=== PATIENT | male | born 1960 | race Caucasian/White ===

== ENCOUNTER 2021-08-04 17:01 | Inpatient (IN) | payer BC ==
[~2021-08-04] VITALS: Ht 182.9 cm; Wt 90.0 kg
[2021-08-04 19:02] LABS: BASOPHILS % (AUTO) 0.1 % (0-1); EOSINOPHILS % (AUTO) 0 % (0-6); HEMATOCRIT 40.4 % (42.0-52.0); LYMPHOCYTES # (AUTO) 0.4 X10'3 (1.1-4.8); LYMPHOCYTES % (AUTO) 6.4 % (21-51); MEAN CORPUSCULAR HEMOGLOBIN 29.3 PG (27.0-31.0); MEAN CORPUSCULAR HGB CONC 34.6 g/dL (33.0-36.5); MEAN CORPUSCULAR VOLUME 84.7 FL (78-98); MEAN PLATELET VOLUME 7.7 FL (7.4-10.4); MONOCYTES # (AUTO) 0.2 X10'3 (0-0.9); MONOCYTES % (AUTO) 4.2 % (2-12); NEUTROPHILS # (AUTO) 5.2 X10'3 (1.8-7.7); NEUTROPHILS % (AUTO) 89.3 % (42-75); PLATELET COUNT 137 X10'3 (140-440); RED BLOOD COUNT 4.77 X10'6 (4.70-6.10); RED CELL DISTRIBUTION WIDTH 12.8 % (11.5-14.5); WHITE BLOOD COUNT 5.9 X10'3 (4.5-11.0)
[2021-08-04 19:16] LABS: ALANINE AMINOTRANSFERASE 40 U/L (12-78); ALBUMIN/GLOBULIN RATIO 0.8 (1.1-1.5); ALKALINE PHOSPHATASE 52 IU/L (46-116); ANION GAP 13 (8-16); ASPARTATE AMINO TRANSFERASE 43 U/L (10-37); BILIRUBIN,TOTAL 0.5 MG/DL (0.1-1.0); BLOOD UREA NITROGEN 22 MG/DL (7-18); BUN/CREATININE RATIO 19.5 (5.4-32.0); CALCIUM 8.2 MG/DL (8.5-10.1); CHLORIDE 94 MMOL/L (99-107); CREATININE 1.13 MG/DL (0.60-1.10); GLUCOSE 134 MG/DL (70-104); POTASSIUM 4.3 MMOL/L (3.5-5.1); SODIUM 129 MMOL/L (135-145); TOTAL CARBON DIOXIDE 22.1 MMOL/L (24-32); TOTAL PROTEIN 6.9 G/DL (6.4-8.2); eGFR 67 ML/MIN
[2021-08-04 19:25] LABS: D-DIMER 1.64 MG/L FEU (0-0.50)
[2021-08-04 19:33] LABS: LACTATE DEHYDROGENASE 321 U/L (85-227)
[2021-08-04] MEDS ORDERED: morphine 2 MG/ML inj. syringe IV PRN ×2 (20:05)
[2021-08-04] MEDS ORDERED: ondansetron/PF 4mg/2ml inj IV PRN (20:05)
[2021-08-04] MEDS ORDERED: mag hydrox/Alum hydrox/simeth 30ml oral suspension PO PRN (20:05)
[2021-08-04] MEDS ORDERED: HYDROcodone/acetaminophen 10/325mg tab PO PRN (20:05)
[2021-08-04] MEDS ORDERED: HYDROcodone/acetaminophen 5mg/325mg tablet PO PRN (20:05)
[2021-08-04] MEDS ORDERED: magnesium hydroxide 30ml (MOM) UD suspension PO PRN (20:05)
[2021-08-04] MEDS ORDERED: acetaminophen 325mg tablet PO PRN ×2 (20:05)
[2021-08-04 20:07] LABS: C-REACTIVE PROTEIN 63.03 MG/DL (0.0-0.5)
[2021-08-04] MEDS ORDERED: REMDESIVIR INJ 200 MG in normal saline 100ml IV soln 100 ML IV ONE (21:00)
[2021-08-04] MEDS ORDERED: NO HOME MEDS (21:06)
[2021-08-04] MEDS: CefTRIAXone/D5W-Rocephin 1gm 50 ML IV SCH (21:07)
[2021-08-04 21:23] LABS: FERRITIN 1680 NG/ML (26-388)
--- NOTE | 2021-08-04 21:43 | NUR ---
Patient in room ED 13. I have received report from Edis ZHENG and had the opportunity to ask questions and assume patient care.
[2021-08-04 22:45] VITALS: BP 125/74
--- NOTE | 2021-08-04 23:54 | NUR ---
Pt has scab to Right Ear states this happened today from a fall at home. Pt stated he has no other pain associated with the fall however, he did land on his bottom.
--- NOTE | 2021-08-04 23:56 | NUR ---
at beside with pt. is aware of the pts sodium of 129 no new orders at this time.
[2021-08-05] MEDS: guaiFENesin/DM 10ml UD oral syrup PO PRN ×2 (00:07→22:03)
[2021-08-05] MEDS: dexamethasone inj 6 MG in dextrose 5%-water 50ml 50 ML IV SCH ×3 (00:08→19:03)
[2021-08-05 02:00] VITALS: BP 106/59
[2021-08-05 05:39] LABS: BASOPHILS # (AUTO) 0.1 X10'3 (0-0.2); EOSINOPHILS % (AUTO) 0.6 % (0-6); HEMATOCRIT 41.2 % (42.0-52.0); HEMOGLOBIN 14.2 g/dl (14.0-17.9); LYMPHOCYTES # (AUTO) 0.3 X10'3 (1.1-4.8); LYMPHOCYTES % (AUTO) 3.9 % (21-51); MEAN CORPUSCULAR HEMOGLOBIN 29.2 PG (27.0-31.0); MEAN CORPUSCULAR HGB CONC 34.4 g/dL (33.0-36.5); MEAN CORPUSCULAR VOLUME 85.1 FL (78-98); MONOCYTES # (AUTO) 0.2 X10'3 (0-0.9); MONOCYTES % (AUTO) 2.4 % (2-12); NEUTROPHILS # (AUTO) 6.4 X10'3 (1.8-7.7); NEUTROPHILS % (AUTO) 92.1 % (42-75); PLATELET COUNT 133 X10'3 (140-440); RED BLOOD COUNT 4.84 X10'6 (4.70-6.10); RED CELL DISTRIBUTION WIDTH 13.2 % (11.5-14.5); WHITE BLOOD COUNT 6.9 X10'3 (4.5-11.0)
[2021-08-05 05:50] LABS: D-DIMER 0.79 MG/L FEU (0-0.50)
[2021-08-05 05:55] LABS: ALBUMIN 2.7 G/DL (3.4-5.0); ANION GAP 12 (8-16); BLOOD UREA NITROGEN 22 MG/DL (7-18); C-REACTIVE PROTEIN 8.91 MG/DL (0.0-0.5); CALCIUM 8.1 MG/DL (8.5-10.1); CHLORIDE 99 MMOL/L (99-107); CREATININE 1.05 MG/DL (0.60-1.10); GLUCOSE 131 MG/DL (70-104); POTASSIUM 4.2 MMOL/L (3.5-5.1); SODIUM 132 MMOL/L (135-145); TOTAL CARBON DIOXIDE 21.5 MMOL/L (24-32); eGFR 73 ML/MIN
--- NOTE | 2021-08-05 06:08 | NUR ---
Patient in room ORTHO 4022. I have received report from Veronica ZHENG and had the opportunity to ask questions and assume patient care.
[2021-08-05 06:19] VITALS: BP 117/72
--- NOTE | 2021-08-05 06:23 | NUR ---
Problems reprioritized. Patient report given, questions answered & plan of care reviewed with Leisa ZHENG.
[2021-08-05] MEDS: CefTRIAXone/D5W-Rocephin 1gm 50 ML IV SCH (07:07)
[2021-08-05] MEDS: docusate sod 100mg capsule PO SCH ×2 (07:07→19:04)
[2021-08-05] MEDS: enoxaparin 40mg/0.4ml syringe SUBCUT SCH (07:07)
--- NOTE | 2021-08-05 07:46 | NUR ---
Provided patient with IS and flutter and instructed on importance of position change. Currently lying on right side, IV steroids infusing.
[2021-08-05 10:08] VITALS: BP 108/65
--- NOTE | 2021-08-05 10:10 | NUR ---
Cleansed wound to right ear with saline. WOC orders put in for their assessment.
--- NOTE | 2021-08-05 15:57 | NUR ---
PAGER ID: [phone] MESSAGE: [id number], Adrián, patient has had diarrhea for the past week and has had 2 episodes on my shift. COVID positive. Can I get immodium? [id number]
[2021-08-05 17:32] VITALS: BP 131/92
--- NOTE | 2021-08-05 18:18 | NUR ---
Problems reprioritized. Patient report given, questions answered & plan of care reviewed with Dinorah ZHENG.
--- NOTE | 2021-08-05 18:19 | NUR ---
Patient in room ORTHO 4022. I have received report from Leisa ZHENG and had the opportunity to ask questions and assume patient care.
[2021-08-05] MEDS: lactobacillus rhamnosus 10,000 MMU CELLS/CAPSULE PO SCH (19:03)
[2021-08-05] MEDS ORDERED: loperamide 2mg capsule PO PRN (20:00)
[2021-08-05] MEDS: REMDESIVIR INJ 100 MG in normal saline 100ml IV soln 100 ML IV SCH (20:19)
[2021-08-05 22:00] VITALS: BP 105/73
[2021-08-06 02:00] VITALS: BP 114/80
[2021-08-06 06:00] VITALS: BP 117/70
[2021-08-06 06:23] LABS: BASOPHILS % (AUTO) 0 % (0-1); EOSINOPHILS % (AUTO) 0 % (0-6); HEMATOCRIT 41.3 % (42.0-52.0); HEMOGLOBIN 13.9 g/dl (14.0-17.9); LYMPHOCYTES # (AUTO) 0.2 X10'3 (1.1-4.8); MEAN CORPUSCULAR HEMOGLOBIN 29.1 PG (27.0-31.0); MEAN CORPUSCULAR HGB CONC 33.8 g/dL (33.0-36.5); MEAN CORPUSCULAR VOLUME 86.2 FL (78-98); MEAN PLATELET VOLUME 8.1 FL (7.4-10.4); MONOCYTES # (AUTO) 0.2 X10'3 (0-0.9); NEUTROPHILS # (AUTO) 6.4 X10'3 (1.8-7.7); PLATELET COUNT 167 X10'3 (140-440); RED BLOOD COUNT 4.79 X10'6 (4.70-6.10); RED CELL DISTRIBUTION WIDTH 13.5 % (11.5-14.5); WHITE BLOOD COUNT 6.8 X10'3 (4.5-11.0)
--- NOTE | 2021-08-06 06:25 | NUR ---
Patient in room ORTHO 4022. I have received report from Dinorah ZHENG and had the opportunity to ask questions and assume patient care.
[2021-08-06 06:37] LABS: D-DIMER 0.55 MG/L FEU (0-0.50)
[2021-08-06 06:49] LABS: ALBUMIN 2.5 G/DL (3.4-5.0); ANION GAP 10 (8-16); BLOOD UREA NITROGEN 24 MG/DL (7-18); BUN/CREATININE RATIO 27.9 (5.4-32.0); C-REACTIVE PROTEIN 7.79 MG/DL (0.0-0.5); CALCIUM 8.3 MG/DL (8.5-10.1); CHLORIDE 103 MMOL/L (99-107); CREATININE 0.86 MG/DL (0.60-1.10); GLUCOSE 139 MG/DL (70-104); POTASSIUM 4.4 MMOL/L (3.5-5.1); SODIUM 137 MMOL/L (135-145); TOTAL CARBON DIOXIDE 24.3 MMOL/L (24-32); eGFR > 90 ML/MIN
[2021-08-06] MEDS: dexamethasone inj 6 MG in dextrose 5%-water 50ml 50 ML IV SCH ×2 (07:02→19:09)
[2021-08-06] MEDS: enoxaparin 40mg/0.4ml syringe SUBCUT SCH (07:02)
[2021-08-06] MEDS: lactobacillus rhamnosus 10,000 MMU CELLS/CAPSULE PO SCH ×2 (07:02→19:08)
[2021-08-06] MEDS: docusate sod 100mg capsule PO SCH ×2 (07:04→19:09)
[2021-08-06] MEDS: CefTRIAXone/D5W-Rocephin 1gm 50 ML IV SCH (07:48)
[2021-08-06 09:42] VITALS: BP 112/73
[2021-08-06] MEDS ORDERED: iohexol 350MG/ML 100ml bottle IV ONE (11:06)
[2021-08-06 14:21] VITALS: BP 108/74
[2021-08-06 18:00] VITALS: BP 111/63
--- NOTE | 2021-08-06 18:12 | NUR ---
Patient in room ORTHO 4022. I have received report from Leny ZHENG and had the opportunity to ask questions and assume patient care.
[2021-08-06] MEDS: REMDESIVIR INJ 100 MG in normal saline 100ml IV soln 100 ML IV SCH (20:21)
[2021-08-06 22:00] VITALS: BP 114/79
[2021-08-06] MEDS: guaiFENesin/DM 10ml UD oral syrup PO PRN (23:59)
[2021-08-07 02:00] VITALS: BP 119/83
--- NOTE | 2021-08-07 04:18 | NUR ---
Patient states he is to uncomfortable to lay on his sides and refusing to lay prone.
--- NOTE | 2021-08-07 06:11 | NUR ---
Problems reprioritized. Patient report given, questions answered & plan of care reviewed with Leisa ZHENG.
--- NOTE | 2021-08-07 06:13 | NUR ---
Patient in room ORTHO 4022. I have received report from Dinorah ZHENG and had the opportunity to ask questions and assume patient care.
[2021-08-07 06:30] VITALS: BP 131/83
[2021-08-07 06:41] LABS: BASOPHILS % (AUTO) 0.1 % (0-1); EOSINOPHILS % (AUTO) 0 % (0-6); HEMATOCRIT 39.5 % (42.0-52.0); HEMOGLOBIN 13.7 g/dl (14.0-17.9); LYMPHOCYTES # (AUTO) 0.1 X10'3 (1.1-4.8); LYMPHOCYTES % (AUTO) 1.2 % (21-51); MEAN CORPUSCULAR HGB CONC 34.6 g/dL (33.0-36.5); MEAN CORPUSCULAR VOLUME 86.6 FL (78-98); MONOCYTES # (AUTO) 0.4 X10'3 (0-0.9); MONOCYTES % (AUTO) 4.1 % (2-12); NEUTROPHILS # (AUTO) 8.7 X10'3 (1.8-7.7); NEUTROPHILS % (AUTO) 94.6 % (42-75); PLATELET COUNT 212 X10'3 (140-440); RED BLOOD COUNT 4.56 X10'6 (4.70-6.10); RED CELL DISTRIBUTION WIDTH 13.5 % (11.5-14.5); WHITE BLOOD COUNT 9.2 X10'3 (4.5-11.0)
[2021-08-07 06:48] LABS: ALBUMIN 2.4 G/DL (3.4-5.0); ANION GAP 9 (8-16); BLOOD UREA NITROGEN 31 MG/DL (7-18); BUN/CREATININE RATIO 36.9 (5.4-32.0); CHLORIDE 105 MMOL/L (99-107); CREATININE 0.84 MG/DL (0.60-1.10); GLUCOSE 137 MG/DL (70-104); POTASSIUM 4.3 MMOL/L (3.5-5.1); SODIUM 139 MMOL/L (135-145); TOTAL CARBON DIOXIDE 24.6 MMOL/L (24-32); eGFR > 90 ML/MIN
[2021-08-07] MEDS: lactobacillus rhamnosus 10,000 MMU CELLS/CAPSULE PO SCH (07:46)
[2021-08-07] MEDS: enoxaparin 40mg/0.4ml syringe SUBCUT SCH (07:46)
[2021-08-07] MEDS: dexamethasone inj 6 MG in normal saline 50ml IV soln 50 ML IV SCH ×2 (07:46→19:41)
[2021-08-07] MEDS: CefTRIAXone/D5W-Rocephin 1gm 50 ML IV SCH (07:46)
--- NOTE | 2021-08-07 07:59 | NUR ---
PAGER ID: [phone] MESSAGE: [id number], Adrián patient is having increased 02 demand as of 399 this am, can I please get an albuterol inhaler? currently on 15 liters high flow. Leisa [phone]
[2021-08-07] MEDS: docusate sod 100mg capsule PO SCH ×2 (08:00→19:41)
[2021-08-07 08:40] LABS: C-REACTIVE PROTEIN 3.32 MG/DL (0.0-0.5)
[2021-08-07 08:56] LABS: D-DIMER 0.56 MG/L FEU (0-0.50)
--- NOTE | 2021-08-07 09:00 | NUR ---
Patient requiring more 02 as of 0400 this morning, up to 15 liters on high flow salter. Patient had a large amount of mucus and snot in nose obstructing air flow, non rebreather applied instead of nasal cannula. Patient 97% on a nasal cannula at this time, sitting up on side of bed.
--- NOTE | 2021-08-07 09:03 | NUR ---
Paged for albuterol inhaler, no response.
[2021-08-07 09:56] VITALS: BP 107/72
[2021-08-07] MEDS ORDERED: benzonatate 100mg capsule PO PRN (10:55)
[2021-08-07] MEDS ORDERED: albuterol 2.5 MG/3 ML nebule NEB PRN (10:55)
[2021-08-07] MEDS ORDERED: albuterol 60 PUFF/8GM Inhaler IH PRN (11:29)
--- NOTE | 2021-08-07 13:50 | NUR ---
RT switched patient to venturi mask, 15 liters 50% fi02. Saturating in high 90s. Patient stood to use bedside commode and is now proning, on high flow salter at 5 liters saturating in high 90s. Patient is producing a lot of green tinged sputum today. Albuterol inhaler also ordered for shortness of breath.
[2021-08-07 14:49] VITALS: BP 109/61
--- NOTE | 2021-08-07 16:50 | NUR ---
Patient has been proning since lunch.
[2021-08-07 18:00] VITALS: BP 104/66
--- NOTE | 2021-08-07 18:24 | NUR ---
Problems reprioritized. Patient report given, questions answered & plan of care reviewed with Sarah ZHENG.
[2021-08-07] MEDS: REMDESIVIR INJ 100 MG in normal saline 100ml IV soln 100 ML IV SCH (21:05)
[2021-08-07 22:00] VITALS: BP 106/68
[2021-08-08 02:11] VITALS: BP 94/57
[2021-08-08 06:00] VITALS: BP 97/58
[2021-08-08 06:09] LABS: BASOPHILS % (AUTO) 0.1 % (0-1); EOSINOPHILS % (AUTO) 0 % (0-6); HEMATOCRIT 38.8 % (42.0-52.0); LYMPHOCYTES # (AUTO) 0.2 X10'3 (1.1-4.8); LYMPHOCYTES % (AUTO) 2.3 % (21-51); MEAN CORPUSCULAR HEMOGLOBIN 29.3 PG (27.0-31.0); MEAN CORPUSCULAR HGB CONC 33.5 g/dL (33.0-36.5); MEAN CORPUSCULAR VOLUME 87.5 FL (78-98); MEAN PLATELET VOLUME 8.2 FL (7.4-10.4); MONOCYTES # (AUTO) 0.4 X10'3 (0-0.9); MONOCYTES % (AUTO) 5.2 % (2-12); NEUTROPHILS # (AUTO) 6.5 X10'3 (1.8-7.7); NEUTROPHILS % (AUTO) 92.4 % (42-75); PLATELET COUNT 232 X10'3 (140-440); RED BLOOD COUNT 4.44 X10'6 (4.70-6.10); RED CELL DISTRIBUTION WIDTH 13.4 % (11.5-14.5); WHITE BLOOD COUNT 7.1 X10'3 (4.5-11.0)
[2021-08-08 06:25] LABS: ALBUMIN 2.4 G/DL (3.4-5.0); ANION GAP 8 (8-16); BLOOD UREA NITROGEN 29 MG/DL (7-18); BUN/CREATININE RATIO 35.4 (5.4-32.0); CHLORIDE 107 MMOL/L (99-107); CREATININE 0.82 MG/DL (0.60-1.10); GLUCOSE 131 MG/DL (70-104); POTASSIUM 4.5 MMOL/L (3.5-5.1); SODIUM 141 MMOL/L (135-145); TOTAL CARBON DIOXIDE 25.6 MMOL/L (24-32); eGFR > 90 ML/MIN
--- NOTE | 2021-08-08 06:29 | NUR ---
Problems reprioritized. Patient report given, questions answered & plan of care reviewed with GHANSHYAM ZHENG.
--- NOTE | 2021-08-08 06:30 | NUR ---
Patient in room ORTHO 4022. I have received report from MARCE Smith and had the opportunity to ask questions and assume patient care.
[2021-08-08] MEDS: enoxaparin 40mg/0.4ml syringe SUBCUT SCH (08:05)
[2021-08-08] MEDS: docusate sod 100mg capsule PO SCH ×2 (08:05→19:46)
[2021-08-08] MEDS: dexamethasone inj 6 MG in normal saline 50ml IV soln 50 ML IV SCH ×2 (08:05→19:47)
[2021-08-08] MEDS: CefTRIAXone/D5W-Rocephin 1gm 50 ML IV SCH (09:10)
--- NOTE | 2021-08-08 09:37 | NUR ---
Initial: Pt admitted w/ acute hypoxemic respiratory failure secondary to COVID pneumonia per EMR. Pt currently on Regular diet w/ avg intake 53% x 9 meals partially meeting needs. Also on 9L HFNC per EMR. Pt could benefit from Ensure Enlive TID to help meet increased needs; pending MD verification. LBM 08/06 receiving routine colace. No open wounds, only abrasion to ear per WOC note. Will continue to monitor. Recs: 1. Continue Regular diet as tolerated 2. Ensure Enlive TID; pending MD verification 3. Bowel care per rx 4. Scaled wt this admit, subsequent weekly wts Addendum: 08/08/21 at [address] Amended: Links added.
[2021-08-08 10:00] VITALS: BP 99/63
[2021-08-08 14:00] VITALS: BP 87/56
[2021-08-08 18:00] VITALS: BP 107/72
[2021-08-08] MEDS: lactose-reduced food (Ensure Enlive) - 237ml bottle PO SCH (18:00)
--- NOTE | 2021-08-08 18:21 | NUR ---
Problems reprioritized. Patient report given, questions answered & plan of care reviewed with Brenda ZHENG.
[2021-08-08] MEDS: guaiFENesin/DM 10ml UD oral syrup PO PRN (19:57)
[2021-08-08 20:53] LABS: D-DIMER 1.12 MG/L FEU (0-0.50)
[2021-08-08] MEDS: REMDESIVIR INJ 100 MG in normal saline 100ml IV soln 100 ML IV SCH (21:00)
[2021-08-08 22:00] VITALS: BP 106/69
[2021-08-09 02:00] VITALS: BP 124/68
[2021-08-09 06:00] VITALS: BP 121/78
--- NOTE | 2021-08-09 06:14 | NUR ---
Patient in room ORTH[facility] 4022. I have received report from MARCE Gutierrez and had the opportunity to ask questions and assume patient care.
--- NOTE | 2021-08-09 06:15 | NUR ---
Problems reprioritized. Patient report given, questions answered & plan of care reviewed with MARCE MORRISSEY.
[2021-08-09 07:47] LABS: BASOPHILS % (AUTO) 0.2 % (0-1); EOSINOPHILS % (AUTO) 0 % (0-6); HEMATOCRIT 41.4 % (42.0-52.0); HEMOGLOBIN 13.8 g/dl (14.0-17.9); LYMPHOCYTES # (AUTO) 0.4 X10'3 (1.1-4.8); LYMPHOCYTES % (AUTO) 6.3 % (21-51); MEAN CORPUSCULAR HEMOGLOBIN 29.4 PG (27.0-31.0); MEAN CORPUSCULAR HGB CONC 33.4 g/dL (33.0-36.5); MEAN PLATELET VOLUME 8.1 FL (7.4-10.4); MONOCYTES # (AUTO) 0.3 X10'3 (0-0.9); MONOCYTES % (AUTO) 4.6 % (2-12); NEUTROPHILS # (AUTO) 5.2 X10'3 (1.8-7.7); NEUTROPHILS % (AUTO) 88.9 % (42-75); PLATELET COUNT 252 X10'3 (140-440); RED CELL DISTRIBUTION WIDTH 13.5 % (11.5-14.5); WHITE BLOOD COUNT 5.9 X10'3 (4.5-11.0)
[2021-08-09] MEDS: lactose-reduced food (Ensure Enlive) - 237ml bottle PO SCH ×3 (08:00→17:37)
[2021-08-09] MEDS: dexamethasone inj 6 MG in normal saline 50ml IV soln 50 ML IV SCH ×2 (08:05→19:46)
[2021-08-09] MEDS: docusate sod 100mg capsule PO SCH ×2 (08:05→19:46)
[2021-08-09] MEDS: enoxaparin 40mg/0.4ml syringe SUBCUT SCH (08:05)
[2021-08-09] MEDS: CefTRIAXone/D5W-Rocephin 1gm 50 ML IV SCH (09:01)
[2021-08-09 09:11] LABS: ALBUMIN 2.4 G/DL (3.4-5.0); ANION GAP 11 (8-16); BLOOD UREA NITROGEN 27 MG/DL (7-18); BUN/CREATININE RATIO 31.8 (5.4-32.0); CALCIUM 8.1 MG/DL (8.5-10.1); CHLORIDE 105 MMOL/L (99-107); CREATININE 0.85 MG/DL (0.60-1.10); GLUCOSE 105 MG/DL (70-104); POTASSIUM 4.7 MMOL/L (3.5-5.1); SODIUM 139 MMOL/L (135-145); TOTAL CARBON DIOXIDE 23.4 MMOL/L (24-32); eGFR > 90 ML/MIN
[2021-08-09 10:00] VITALS: BP 95/61
--- NOTE | 2021-08-09 13:59 | NUR ---
Page Sent PAGER ID: [phone] MESSAGE: [phone] Re: Alex Sampson [id number] pt's oxygen requirements went up after lunch. Pt now on 10L. Was satting in the low 80s. Thanks!
[2021-08-09 14:13] VITALS: BP 104/65
[2021-08-09 18:00] VITALS: BP 126/78
--- NOTE | 2021-08-09 18:06 | NUR ---
Problems reprioritized. Patient report given, questions answered & plan of care reviewed with MARCE Gutierrez.
--- NOTE | 2021-08-09 18:07 | NUR ---
Patient in room ORTHO 4022. I have received report from MARCE MORRISSEY and had the opportunity to ask questions and assume patient care.
[2021-08-09] MEDS: REMDESIVIR INJ 100 MG in normal saline 100ml IV soln 100 ML IV SCH (20:57)
[2021-08-09 21:24] LABS: D-DIMER 1.19 MG/L FEU (0-0.50)
[2021-08-09 21:59] VITALS: BP 114/77
[2021-08-10 01:46] VITALS: BP 114/76
[2021-08-10 06:00] VITALS: BP 99/62
--- NOTE | 2021-08-10 06:25 | NUR ---
Patient in room ORTHO 4022. I have received report from Brenda ZHENG and had the opportunity to ask questions and assume patient care.
[2021-08-10] MEDS: CefTRIAXone/D5W-Rocephin 1gm 50 ML IV SCH (07:28)
[2021-08-10] MEDS: docusate sod 100mg capsule PO SCH ×2 (07:28→19:56)
[2021-08-10] MEDS: enoxaparin 40mg/0.4ml syringe SUBCUT SCH (07:28)
[2021-08-10] MEDS: dexamethasone inj 6 MG in normal saline 50ml IV soln 50 ML IV SCH ×2 (07:28→19:56)
[2021-08-10] MEDS: lactose-reduced food (Ensure Enlive) - 237ml bottle PO SCH ×3 (08:00→19:57)
[2021-08-10 09:20] LABS: D-DIMER 1.26 MG/L FEU (0-0.50)
[2021-08-10 10:00] VITALS: BP 100/62
[2021-08-10 14:00] VITALS: BP 95/63
[2021-08-10 18:00] VITALS: BP 95/60
[2021-08-10 22:00] VITALS: BP 112/65
--- NOTE | 2021-08-11 06:21 | NUR ---
Patient in room ORTHO 4022. I have received report from Willis ZHENG and had the opportunity to ask questions and assume patient care.
[2021-08-11 06:24] VITALS: BP 102/61
[2021-08-11] MEDS: dexamethasone inj 6 MG in normal saline 50ml IV soln 50 ML IV SCH ×2 (07:41→20:07)
[2021-08-11] MEDS: CefTRIAXone/D5W-Rocephin 1gm 50 ML IV SCH (07:41)
[2021-08-11] MEDS: enoxaparin 40mg/0.4ml syringe SUBCUT SCH (07:41)
[2021-08-11] MEDS: docusate sod 100mg capsule PO SCH ×2 (08:00→20:00)
[2021-08-11] MEDS: lactose-reduced food (Ensure Enlive) - 237ml bottle PO SCH ×3 (08:08→18:00)
[2021-08-11 09:49] VITALS: BP 87/52
--- NOTE | 2021-08-11 09:57 | NUR ---
O2 Sat at rest on room air:__88_% If below 89%: Recovery O2 Sat at rest on __2.5 LPM:___93%:___% via nasal cannula (mask/nasal cannula, etc..) No further documentation is necessary. If O2 Sat did not drop below 89% on room air,ambulate patient on room air. O2 Sat while ambulating on room air:___% Recovery O2 Sat while ambulating on ___LPM:___% No further documentation is necessary. If patient does not drop below 89% while ambulating, he/she does not qualify for home O2.
--- NOTE | 2021-08-11 09:58 | NUR ---
MD made aware of patients increased D-dimer, up to 9.50 today from 1.26
[2021-08-11] MEDS ORDERED: DEXA4TAB67 PO (10:21)
[2021-08-11] MEDS ORDERED: APIX5TAB3 PO (10:21)
[2021-08-11] MEDS ORDERED: ALBU8.5H17 INH (10:21)
--- NOTE | 2021-08-11 10:23 | NUR ---
Consulted with case management to let them know that the patient needs home oxygen, also discussed with MD that [place], patient lives alone and is in a car with only two wheel drive, patient is unable to put chains on his car at this time due to the fact that he is ill and has covid and has exertional tachypnea. Patient has a friend that is going to go check on the conditions at this home and let him know how it is there. Patient also has a friend in [place] who could potentially give him a ride home. Addendum: 08/11/21 at 1025 by Leisa Kaur RN Where he lives also has no cell phone service.
--- NOTE | 2021-08-11 11:40 | NUR ---
PAGER ID: [phone] MESSAGE: [id number], Adrián patient is unable to find anyone to take him home and his car will not make it there because they are requiring chains. Weather tomorrow is supposed to be safer for him to go home, can get him out MICHAEL in AM. Leisa [phone]
[2021-08-11 14:00] VITALS: BP 97/45
[2021-08-11 18:00] VITALS: BP 102/70
--- NOTE | 2021-08-11 18:36 | NUR ---
Problems reprioritized. Patient report given, questions answered & plan of care reviewed with Mariella ZHENG.
[2021-08-11] MEDS: apixaban 5mg tablet PO SCH (20:07)
[2021-08-11 21:30] VITALS: BP 102/66
--- NOTE | 2021-08-11 22:22 | NUR ---
sat up to bedside to void. sats down to 77%. came up w/in 5 minutes back to 93% on 2.5L oxygen.
[2021-08-12 02:11] VITALS: BP 119/75
--- NOTE | 2021-08-12 06:28 | NUR ---
reported to days. noted pt ready to go home. will need safe roads for discharge and power on at home.
[2021-08-12] MEDS: docusate sod 100mg capsule PO SCH (08:20)
[2021-08-12] MEDS: apixaban 5mg tablet PO SCH (08:20)
--- NOTE | 2021-08-12 08:42 | NUR ---
Patient ready to be discharged at beginning of shift. Discharge papers reviewed with patient. [facility] [employer] booklet in discharge folder, patient aware. IV removed, belongings placed in belongings bag. Patient free from injuries. Friend is waiting down stairs for patient.
== END 2021-08-12 08:55 | disposition home or self-care (01) | DRG 177 ==
LOC: ER 17:03 → EDBD 17:03 → ED HOLD 20:11 → ORTHO 4S 22:38
PROVIDERS: ADMIT Internal Medicine; ATTEND Family Medicine
PROC: XW033E5 Introduction of Remdesivir Anti-infective into Peripheral Vein, Percutaneous Approach, New Technology Group 5 (ICD-10-PCS; principal; 2021-08-04)
PROC: 5A0935A Assistance with Respiratory Ventilation, Less than 24 Consecutive Hours, High Flow/Velocity Cannula (ICD-10-PCS; 2021-08-04)
PROC: B32T1ZZ Computerized Tomography (CT Scan) of Left Pulmonary Artery using Low Osmolar Contrast (ICD-10-PCS; 2021-08-06)
PROC: B3201ZZ Computerized Tomography (CT Scan) of Thoracic Aorta using Low Osmolar Contrast (ICD-10-PCS; 2021-08-06)
PROC: B32S1ZZ Computerized Tomography (CT Scan) of Right Pulmonary Artery using Low Osmolar Contrast (ICD-10-PCS; 2021-08-06)
PROC: 5A0945A Assistance with Respiratory Ventilation, 24-96 Consecutive Hours, High Flow/Velocity Cannula (ICD-10-PCS; 2021-08-07)
DX: U07.1 COVID-19 (principal); J12.82 Pneumonia due to coronavirus disease 2019; J96.01 Acute respiratory failure with hypoxia; E87.1 Hypo-osmolality and hyponatremia; K80.20 Calculus of gallbladder without cholecystitis without obstruction; Z79.01 Long term (current) use of anticoagulants; Z79.899 Other long term (current) drug therapy
CPT/HCPCS: 36415; 71045; 71275; 80048; 80053; 82728; 83615; 83735; 83880; 84100; 84145; 84484; 85025; 85379; 86140; 87081; 87635; 94760; 97116; 97161; 97530; 99285; C9803; G0378; J0696; J1100; J1650; J3490; J7060; Q9967

== ENCOUNTER 2024-03-18 16:14 | Emergency (ER) | payer BC ==
[~2024-03-18] VITALS: Ht 177.8 cm; Wt 74.0 kg
[~2024-03-18 16:14] MED LIST: ALBU8.5H17 INH; APIX5TAB3 PO; DEXA4TAB67 PO
[2024-03-18 16:23] VITALS: BP 123/72; PULSE 59; RESP 18; TEMP 97.6; O2SAT 98
[2024-03-18] MEDS ORDERED: NEOM10DR45 RIGHT EAR (17:49)
[2024-03-18] MEDS ORDERED: CEPH-585 PO (17:49)
== END 2024-03-18 18:04 | disposition home or self-care (01) ==
LOC: ER 16:15
DX: H60.91 Unspecified otitis externa, right ear (principal); Z79.899 Other long term (current) drug therapy
CPT/HCPCS: 99283